=== PATIENT | female | born 1970 | race Caucasian/White ===

== ENCOUNTER 2017-11-02 07:44 | Day surgery (SDC) | payer OTHER ==
[~2017-11-02 07:44] MED LIST: CEFAZOLIN 1 GM/50 ML (PMX) 50 ML IVPB; EPHEDrine SULFATE 50 MG/5 ML SYG
[2017-11-02] MEDS: SOD CHLORIDE 0.9% 1,000 ML IV (08:39)
[2017-11-02] MEDS ORDERED: LIDOCAINE 2% (SDV) 5 ML INJ (10:00)
[2017-11-02] MEDS ORDERED: CEFAZOLIN 1 GM INJ (10:00)
[2017-11-02] MEDS ORDERED: DIPHENHYDRAMINE 50 MG INJ IV (10:00)
[2017-11-02] MEDS ORDERED: PROPOFOL 40 ML (10:00)
[2017-11-02] MEDS ORDERED: FENTAnyl 50 MCG/ML VIAL IV (10:00)
[2017-11-02] MEDS ORDERED: MIDAZOLAM 1 MG/ML 2 ML INJ (10:00)
[2017-11-02] MEDS ORDERED: ONDANSETRON 4 MG INJ IV (10:00)
[2017-11-02] MEDS ORDERED: morphine (1 MG/ML) 10ML SYRINGE IV (10:00)
[2017-11-02] MEDS ORDERED: FENTAnyl 50 MCG/ML VIAL ×2 (10:01→11:12)
[2017-11-02] MEDS ORDERED: ONDANSETRON 4 MG INJ (10:01)
[2017-11-02] MEDS ORDERED: DEXAMETHASONE 4 MG/ML 1 ML INJ (10:01)
[2017-11-02] MEDS ORDERED: OXYCODONE/ACETAMINOPHEN (5/325) TAB (13:35)
[2017-11-02] MEDS ORDERED: OXYCODONE/ACETAMINOPHEN (10/325) TAB PO (14:00)
== END 2017-11-02 14:47 | disposition home or self-care (01) ==
LOC: SDS 07:44
DX: N64.1 Fat necrosis of breast (principal)
CPT/HCPCS: 19120; 84703; 88307